=== PATIENT | female | born 1985 | race Caucasian/White ===

== ENCOUNTER 2021-06-05 09:40 | Inpatient (IN) ==
[~2021-06-05 09:40] MED LIST: Azithromycin 500 MG in 0.9 % Sodium Chloride 250 ML IVPB PRN; Famotidine 20 MG/2 ML VIAL IVP PRN; Metoclopramide 10 MG/2 ML VIAL IVP PRN; Naloxone 0.4 MG/ML INJ IVP PRN; Ondansetron 4 MG/2 ML VIAL IVP PRN
[2021-06-05] MEDS ORDERED: Ringers Solution, Lactated 1,000 ML IVC SCH (09:45)
[2021-06-05 10:33] LABS: Basophils % 0.2 %; Eosinophils % 0.1 %; Hematocrit 34.9 % (35.3-44.9); Hemoglobin 11.7 g/dL (11.5-15.4); Immature Granulocytes % 0.8 % (0-4); Lymphocytes % 15.8 %; Mean Corpuscular HGB Conc 33.5 g/dL (31.6-35.5); Mean Corpuscular Hemoglobin 30.5 pg (28.0-33.3); Mean Corpuscular Volume 90.9 fL (83.0-100.0); Mean Platelet Volume 10.1 fL (9.4-12.4); Monocytes # 0.4 K/mcL (0.0-1.3); Monocytes % 2.9 %; Platelet Count 430 K/mcL (140-400); Red Blood Count 3.84 M/mcL (3.82-4.97); Red Cell Distribution Width 12.7 % (11.5-14.5); Segmented Neutrophils % 80.2 %; White Blood Count 12.5 K/mcL (4.3-11.1)
[2021-06-05 10:42] LABS: Influenza A PCR Negative (Negative); Influenza B PCR Negative (Negative); Resp. Syncytial Virus PCR Negative (Negative)
[2021-06-05 10:43] LABS: SARS-CoV-2 by PCR (In House) Negative (Negative)
[2021-06-05 10:45] LABS: Amphetamine Screen,Urine Negative ng/mL (Cutoff=1000); Barbiturate Screen,Urine Negative ng/mL (Cutoff=200); Benzodiazepines Screen,Urine Negative ng/mL (Cutoff=200); Cannabinoid Screen,Urine Negative ng/mL (Cutoff = 50); Cocaine Screen,Urine Negative ng/mL (Cutoff= 300); Opiate Screen,Urine Negative ng/mL (Cutoff=300); Phencyclidine Screen,Urine Negative ng/mL (Cutoff=25)
[2021-06-05] MEDS ORDERED: Oxytocin 20 units/ LR 1000 mL 20 UNIT/1,000 ML BAG IVC ONE (14:24)
[2021-06-05] MEDS ORDERED: EPHEDrine 50 MG/ML VIAL IVP PRN (14:25)
[2021-06-05] MEDS ORDERED: *HR* FentaNYL (PF) 100 MCG/2 ML VIAL ONE (14:28)
[2021-06-05] MEDS ORDERED: Epidural Premix (fent/bupiv) 110 ML EP SCH (14:30)
[2021-06-05] MEDS ORDERED: Benzocaine/Menthol 56 GM AEROSOL SPRAY TP PRN (18:28)
[2021-06-05] MEDS ORDERED: Rho Immune Globulin 1,500 UNIT SYRINGE IM PRN (18:28)
[2021-06-05] MEDS ORDERED: Measles/Mumps/Rubella Vacc 0.5 ML VIAL SQ PRN (18:28)
[2021-06-05] MEDS ORDERED: Oxytocin 20 units/ LR 1000 mL 20 UNIT/1,000 ML BAG IVC SCH (18:28)
[2021-06-05] MEDS ORDERED: Lanolin 7 G OINT...G. TP PRN (18:28)
[2021-06-05 21:10] VITALS: O2SAT 98
[2021-06-05] MEDS: Acetaminophen 325 MG TABLET PO PRN (23:27)
[2021-06-05] MEDS: Ibuprofen 600 MG TABLET PO PRN (23:27)
[2021-06-06] MEDS: Ibuprofen 600 MG TABLET PO PRN ×2 (04:51→12:14)
[2021-06-06] MEDS: Acetaminophen 325 MG TABLET PO PRN (04:52)
[2021-06-06 08:15] VITALS: BP 116/64; PULSE 65; TEMP 98.1
[2021-06-06] MEDS ORDERED: Prenatal Vit/FA 1 EACH TABLET PO SCH (09:00)
== END 2021-06-06 12:20 | disposition home or self-care (01) | DRG 560 ==
LOC: 1NENULAB → 1NENUOBS 18:26
PROVIDERS: ADMIT Advanced Practice Midwife; ATTEND Advanced Practice Midwife